=== PATIENT | male | born 1955 | race Caucasian/White ===

== ENCOUNTER 2022-03-28 21:37 | Emergency (ER) | payer MEDICARE, MEDICAID, SELFPAY ==
[2022-03-28 21:38] VITALS: BP 149/92; PULSE 83; RESP 18; TEMP 36.8; O2SAT 95; BMI 34.7
--- NOTE | 2022-03-28 22:10 | EX.ED.DYSGE1 ---
HPI History of Present Illness Chief Complaint: Rash Informant: patient and EMS Onset/Context/Timing Onset: Today (all day today, awoke w/ sx and presents around 2200) Context: Gradual Onset Timing: Continuous Quality: sore Location: R axilla Current Severity: Moderate Maximum Severity: Moderate Worsened by: palpation Relieved by: leaving alone Associated Symptoms Associated Symptoms: none Narrative Narrative: 66-year-old male with spontaneous onset of painful redness in his right axilla. No fevers or chills, no injury to this area, never had this before, he states that his right axilla skin is always looked abnormal but he does not know why. He has never had any abscesses or surgeries in this area. He states now the skin is similarly abnormal but just red and painful. [facility] Medical History Paranoid schizophrenia Home Medications buspirone 5 mg tablet 15 mg PO TID 11/08/13 [History Last Taken Unknown] hydroxyzine pamoate 25 mg capsule 50 mg PO BID PRN PRN Anxiety 11/08/13 [History Last Taken Unknown] lurasidone 80 mg tablet (Latuda) 80 mg PO DAILY 11/08/13 [History Last Taken Unknown] sertraline 100 mg tablet 300 mg PO DAILY 11/08/13 [History Last Taken Unknown] clotrimazole 1 % topical cream 1 applic topical BID 2 weeks #30 grams 03/28/22 [Rx Last Taken Unknown] doxycycline monohydrate 100 mg capsule 100 mg PO BID #14 CAPSULES 03/28/22 [Rx Last Taken Unknown] Allergy/AdvReac Type Severity Reaction Status Date / Time fluphenazine enanthate Allergy Other Verified 03/28/22 21:40 [From Prolixin] fluphenazine HCl Allergy Other Verified 03/28/22 21:40 [From Prolixin] haloperidol [From Haldol] Allergy Other Verified 03/28/22 21:40 haloperidol lactate Allergy Other Verified 03/28/22 21:40 [From Haldol] Social History Smoking Status: Current every day smoker tobacco type: cigarettes ROS ROS ED Constitutional Constitutional ED: Denies chills or fever(s) Eyes Eyes: Denies change in vision or diplopia Cardiovascular Cardiovascular: Denies chest pain or palpitations Respiratory/Chest Respiratory/Chest: Denies cough or dyspnea Gastrointestinal Gastrointestinal: Denies nausea or vomiting Genitourinary Genitourinary ED: Denies dysuria or hematuria Musculoskeletal Musculoskeletal: Denies back pain, myalgias or neck pain Integumentary Reports rash; Denies abscess Neurologic Neurologic: Denies headache(s), paresthesias or weakness EXAM Physical Exam Const Vital Signs: 03/28/22 21:38 Temperature 98.3 F Temperature Source Oral Pulse Rate 83 Respiratory Rate 18 Blood Pressure 149/92 H Blood Pressure Mean 111 Pulse Ox 95 Oxygen Delivery Method Room Air Positive well nourished, well developed and obese General Appearance ED: well developed and NAD Nutritional Appearance: obese HEENT Reports moist mucous membranes and dry mucous membranes Negative for trauma or tenderness Mouth ED: Yes dry mucous membranes Mouth: dry mucous membranes Eyes PERRL and EOMs intact bilaterally Neck no lymphadenopathy and supple Lymph Lymphatic Narrative: No axillary lymphadenopathy Chest Wall Chest Narrative: Right axilla: Moist skin diffusely surrounded by erythema that is relatively well margin/circumscribed, no abscess, no induration, erythema is most prominent around the circumference/edge of the entire area, the entire axilla is involved and the erythema is at the edge of the axilla. No discharge expressible. No objective tenderness but the patient states it hurts to palpate. No extension down the arm or elsewhere into the chest wall or back. Full range of motion of the shoulder without difficulty. Resp normal respiratory effort Effort and Inspection: able to speak in complete sentences Neuro oriented x3, CN's II-XII intact bilaterally and no sensory deficits noted Psych mental status grossly normal Skin no wounds Skin Narrative: Right axilla rash see above MDM MDM MDM Narrative Medical decision making narrative: I think this is most likely intertriginous candidiasis. Patient states it is very painful however, and this is the first time he has presented for this. I am putting him on doxycycline in case this is bacterial, but it looks more likely to be fungal. Will prescribe clotrimazole topical, and advised follow-up with primary care. We discussed reasons to return his comfortable with that plan. Discharge Plan Triage Chief Complaint: Rash ED Provider: Estuardo Traore Dx/Rx/DC Orders Clinical Impression: Intertriginous candidiasis Instructions: ED Shama Skin Infection (Adult) Prescriptions: New clotrimazole 1 % cream 1 applic topical BID 14 Days Qty: 30 0RF Rx Instructions: ok to substitute for different size tube if availability dictates doxycycline monohydrate 100 mg capsule 100 mg PO BID Qty: 14 0RF No Action buspirone 5 MG tablet 15 mg PO TID sertraline 100 MG tablet 300 mg PO DAILY hydroxyzine pamoate 25 MG capsule 50 mg PO BID PRN PRN (Reason: Anxiety) lurasidone [Latuda] 80 MG tablet 80 mg PO DAILY Primary Care Provider: [facility] Doctor,Out of Referrals: [facility] Doctor,Out of [Primary Care Provider] - 3-5 Days Disposition Disposition: Home, Self Care
[2022-03-28 22:17] VITALS: PULSE 76; RESP 17
[2022-03-28] MEDS: Doxycycline 100 MG CAPSULE PO (22:26)
== END 2022-03-28 22:40 | disposition home or self-care (01) ==
PROVIDERS: Emergency Provider Emergency Medicine; Visit Provider Emergency Medicine
DX: B37.2 Candidiasis of skin and nail (principal); E66.9 Obesity, unspecified; Z68.34 Body mass index [BMI] 34.0-34.9, adult; F17.210 Nicotine dependence, cigarettes, uncomplicated
CPT/HCPCS: 90471; 99284

== ENCOUNTER 2023-07-24 13:17 | Emergency (ER) | payer MEDICARE, MEDICAID, SELFPAY ==
[2023-07-24 13:18] VITALS: BP 164/89; PULSE 89; RESP 18; TEMP 36.5; O2SAT 97; BMI 32.1
[2023-07-24 13:23] VITALS: PULSE 101; RESP 18; O2SAT 97
[2023-07-24] MEDS: LORazepam 0.5 MG Tablet PO (13:56)
[2023-07-24 14:21] VITALS: BP 157/84; PULSE 78; RESP 18; O2SAT 98
--- NOTE | 2023-07-24 14:35 | EX.ED.VIS.PS ---
HPI HPI - Psych History of Present Illness Chief Complaint: Mental Health Detail of Chief Complaint: Anxiety Informant: patient Onset/Context/Timing Onset: Days Context: Gradual Onset Conflict: - (Issue with roommate) Timing: Continuous and Waxes and wanes Current Severity: Gone Maximum Severity: Severe Worsened by: Situational factors Relieved by: Not been around his roommate Associated Symptoms Associated Symptoms - Psych: Positive for - (States he is anxious because of his monthly injection and his roommate); Negative for Depressed, Change in Eating, Change in sleeping, Decreased Interest, Guilt, Decreased Concentration, Hopelessness, Suicidal Thoughts, Easily distracted, Grandiosity, Flight of Ideas, Increased activity, Pressured Speech, Agitated, Angry, Hostile, Threatening, Confusion, Paranoia, Visual Hallucinations or Auditory Hallucinations Specific plan (suicidal thought): Not applicable Narrative Narrative: Patient is a 67-year-old male who is lived in a long-term for 8 to 10 years. He has history of schizophrenia. He states he does have a roommate. He states he is anxious because his roommate is crazy . Asked if he had spoken to anyone at the long-term and he responded yes . Asked what her response was regarding his assessment of his roommate and he responded they agree . Patient denies suicidal homicidal thoughts. Patient presently denies visual or auditory hallucination. Patient denies fever, chills night sweats. Patient denies headache, visual, ocular auditory symptoms. Patient denies cardiac or respiratory symptoms. Patient denies GI symptoms. Patient denies symptoms. Patient denies neurologic symptoms. He states he received his Invega injection 3 weeks ago. He is slightly anxious that he is getting 1/3 injection in a week. Recent Illness/Hospitalization: No [facility] Medical History Paranoid schizophrenia Home Medications buspirone 5 mg tablet 15 mg PO TID 11/08/13 [History Last Taken Unknown] hydroxyzine pamoate 25 mg capsule 50 mg PO BID PRN PRN Anxiety 11/08/13 [History Last Taken Unknown] lurasidone 80 mg tablet (Latuda) 80 mg PO DAILY 11/08/13 [History Last Taken Unknown] sertraline 100 mg tablet 300 mg PO DAILY 11/08/13 [History Last Taken Unknown] clotrimazole 1 % topical cream 1 applic topical BID 2 weeks #30 grams 03/28/22 [Rx Last Taken Unknown] doxycycline monohydrate 100 mg capsule 100 mg PO BID #14 CAPSULES 03/28/22 [Rx Last Taken Unknown] Allergy/AdvReac Type Severity Reaction Status Date / Time fluphenazine enanthate Allergy Other Verified 07/24/23 13:22 [From Prolixin] fluphenazine HCl Allergy Other Verified 07/24/23 13:22 [From Prolixin] haloperidol [From Haldol] Allergy Other Verified 07/24/23 13:22 haloperidol lactate Allergy Other Verified 07/24/23 13:22 [From Haldol] Social History (Updated 07/24/23 @ 14:[address] Matthew Matthews MD) household members: other details: Shelter, there are 9 residents. He has a roommate. Smoking Status: Current every day smoker tobacco type: cigarettes substance use type: does not use ROS ROS ED Constitutional Constitutional ED: Denies chills, fever(s) or subjective Eyes Eyes: Denies blurry vision, change in vision or diplopia ENT ENT ED: Denies ear pain, rhinorrhea or sore throat Cardiovascular Cardiovascular: Denies chest pain or palpitations Respiratory/Chest Respiratory/Chest: Denies cough, dyspnea or dyspnea on exertion Gastrointestinal Gastrointestinal: Denies abdominal pain, nausea or vomiting Genitourinary Genitourinary ED: Denies dysuria, hematuria or urinary frequency Musculoskeletal Musculoskeletal: Denies arthralgias or myalgias Integumentary Denies rash Neurologic Neurologic: Denies headache(s), paresthesias or weakness Psychiatric Psychiatric: Reports anxiety; Denies suicidal ideation or suicidal thoughts EXAM Physical Exam Const Vital Signs: 07/24/23 13:18 07/24/23 13:23 07/24/23 14:21 Temperature 97.7 F L Temperature Source Temporal Pulse Rate 89 101 H 78 Respiratory Rate 18 18 18 Blood Pressure 164/89 H 157/84 H Blood Pressure Mean 114 108 Pulse Ox 97 97 98 Oxygen Delivery Method Room Air Room Air Room Air Positive well nourished, well developed and obese Constitutional Narrative: Peers in no distress. He seems fidgety. He is wearing sweatpants and a purple sweater. His hair is combed. He does have an odor to however. General Appearance ED: well developed; Negative for pallor Nutritional Appearance: obese HEENT Reports TM's clear and moist mucous membranes HEENT Narrative: Ears are normal. External auditory canal is normal. Nares patent. Posterior pharynx out erythema or exudate. Uvula is midline. normocephalic and atraumatic Tympanic Membrane ED: Yes TM's clear Eyes PERRL and EOMs intact bilaterally General Eye ED: Negative for pale conjunctiva or scleral icterus Neck no lymphadenopathy and no JVD Neck Narrative: He is midline. 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 Resp normal respiratory effort and clear to auscultation bilaterally Cardio S1 normal heart sound, S2 normal heart sound and no murmurs Rate: regular rate Rhythm: regular rhythm GI non-tender, non-distended and no masses Auscultation: hypoactive bowel sounds Palpation: soft Back/Spine no CVA tenderness Extremity normal to inspection General Extremety ED: Negative for edema, tenderness or other findings General Extremity: Negative for edema or other findings Neuro oriented x3, CN's II-XII intact bilaterally, no sensory deficits noted and deep tendon reflexes 2+ bilaterally [place] Coma Scale: document GCS findings Spontaneous Obeys Commands Oriented 15 Sensorium / Orientation: alert Psych cooperative, affect normal, speech normal, activity/motor behavior normal, denies hallucinations, denies homicidal ideation and denies suicidal ideation Appearance: grossly normal Attitude: calm and engaged Activity / Motor Behavior: appropriate eye contact and fidgetting Speech: normal speech Mood & Affect: flat affect Thought Process: normal thought process Thought Content: normal thought content Attention / Concentration: attention grossly intact Memory / Cognition: memory grossly intact Insight: fair Judgement: fair Skin General Skin Exam: Negative for jaundice or pallor Lesions: no lesions Rashes: no rashes MDM MDM MDM Narrative Medical decision making narrative: Complains of anxiety. We will administer Ativan and reassess. Patient's vitals reveal slightly elevated blood pressure. He is afebrile and he is not tachycardic tachypneic or hypoxic. There is no concern for a metabolic or infectious disease process. History & Record Review Additional record(s) reviewed:: Prior ED visit (Daily infection and obesity.) Treatment and Re-Evaluation Narrative: Patient proved after Ativan. Patient with anxiety reaction due to living conditions/roommate. Discharge Plan Triage Chief Complaint: Mental Health ED Provider: Matthew Matthews Dx/Rx/DC Orders Clinical Impression: Hx of paranoid schizophrenia, Anxiety reaction Prescriptions: No Action buspirone 5 MG tablet 15 mg PO TID sertraline 100 MG tablet 300 mg PO DAILY hydroxyzine pamoate 25 MG capsule 50 mg PO BID PRN PRN (Reason: Anxiety) lurasidone [Latuda] 80 MG tablet 80 mg PO DAILY clotrimazole 1 % cream 1 applic topical BID 14 Days Qty: 30 0RF Rx Instructions: ok to substitute for different size tube if availability dictates doxycycline monohydrate 100 mg capsule 100 mg PO BID Qty: 14 0RF [facility] [[facility] Provider[facility] - Disposition Disposition: Home, Self Care
--- NOTE | 2023-07-24 15:47 | ED.RN ---
PT STATES CAN I GO TO A PSYCH [facility]?. THIS RN SPOKE TO DR. WHITE. PER DR. WHITE, PT DOES NOT MEET CRITERIA FOR INPATIENT PSYCHIATRIC TREATMENT. THIS RN EDUCATED PT ON THIS. SOCIAL WORK TO COME TALK TO PT.
[2023-07-24 15:52] VITALS: BP 149/94; PULSE 89; RESP 18; O2SAT 97
[2023-07-24 15:53] VITALS: BP 149/94; PULSE 89; RESP 18; O2SAT 97
[2023-07-24 16:06] VITALS: RESP 17
--- NOTE | 2023-07-24 16:31 | ED.RN ---
DAVID, SOCIAL WORK TO CONTACT GUARDIAN.
--- NOTE | 2023-07-24 16:32 | CM.ED ---
Social Work SW notified that patient was inquiring about psych placement. SW introduced self and role to patient. Pt reports he does not like the longterm he resides in. SW provided support and listened to patient's concerns which were the food, people there, and grinder gear. Pt is not distressed or in need of psychiatric placement. SW explained he does not meet criteria. Pt reports he receives services through the [facility] and is looking for a new residence. Pt indicated he has a guardian which was not known by ED staff. Pt reports his guardian is Mariel Russo ([phone]) and she is assisting finding alternate housing with the [facility]. SW provided anxiety and counseling resources to patient. Pt arrived via squad and reports he does not have a way home. MARCELO informed patient guardian would be called and transportation will be explored. MARCELO contacted Mariel Russo regarding patient present in the ED. Mariel is agreeable to treatment and denies concerns. Mariel reports she [facility] on meeting [facility] for new placement and patient is interested in a nursing facility. Pt currently resides at [facility] and guardian is aware he is unhappy there. Mariel denies any transportation being available. MARCELO will attempt to find transportation for patient. [facility] called and VM left. SW received return call and [facility] denies having any transportation available due to time of day. MARCELO called [facility] with no answer as it was close to closing time. MARCELO contacted [facility] and after a long process, a ride was obtained for transportation back to [facility]. Ride facilitated by [facility] with [id number] conf. #[id number], . Approx. arrival to be 6:30 to 7:30. MARCELO notified patient of scheduled transportation. SW has patient waiting in ED waiting room and provided food to patient. Triage nurse is also aware of patient waiting for a scheduled ride. Guardian to be added to patient's contacts. Shea Dyer DECOMMISSIONING WELL SITE MANAGER, CONSTRUCTION ACCOUNTANT
== END 2023-07-24 16:39 | disposition home or self-care (01) ==
PROVIDERS: Emergency Provider Emergency Medicine; Visit Provider Emergency Medicine
DX: F41.1 Generalized anxiety disorder (principal); F20.9 Schizophrenia, unspecified; F17.210 Nicotine dependence, cigarettes, uncomplicated; E66.9 Obesity, unspecified
CPT/HCPCS: 99284

== ENCOUNTER 2023-08-26 13:58 | Emergency (ER) | payer MEDICAID, MEDICARE, SELFPAY ==
[2023-08-26 14:00] VITALS: BP 179/84; PULSE 86; RESP 16; TEMP 36.6; O2SAT 99; BMI 31.9
--- NOTE | 2023-08-26 16:51 | EX.ED.DYSGE1 ---
HPI History of Present Illness Chief Complaint: Neuro S/Sx Informant: patient Narrative Narrative: Patient is a 67-year-old male. Paranoid schizophrenia, receives his care through the [facility] for long-term use of Invega injections presenting with worsening tremor. He states is a side effect of the Invega. Is been going on for quite some time he states has been on this medicine for years. He feels it is getting worse. He has been on Cogentin in the past but willing to try it again. He is requesting a medication to help with the side effects as a becoming more bothersome for him. He states he is otherwise feeling well with no complaints. Denies any recent medication changes. He states [facility] and [facility] try to increase his side effect medication but its not helping. He states its not Cogentin or Benadryl but does not know the name of the medication. No other complaints or concerns at this time. [facility] Medical History Paranoid schizophrenia Home Medications buspirone 5 mg tablet 15 mg PO TID 11/08/13 [History Last Taken Unknown] hydroxyzine pamoate 25 mg capsule 50 mg PO BID PRN PRN Anxiety 11/08/13 [History Last Taken Unknown] lurasidone 80 mg tablet (Latuda) 80 mg PO DAILY 11/08/13 [History Last Taken Unknown] sertraline 100 mg tablet 300 mg PO DAILY 11/08/13 [History Last Taken Unknown] clotrimazole 1 % topical cream 1 applic topical BID 2 weeks #30 grams 03/28/22 [Rx Last Taken Unknown] doxycycline monohydrate 100 mg capsule 100 mg PO BID #14 CAPSULES 03/28/22 [Rx Last Taken Unknown] benztropine 1 mg tablet 1 mg PO TID PRN tremor(s) #20 tabs 08/26/23 [Rx Last Taken Unknown] Allergy/AdvReac Type Severity Reaction Status Date / Time fluphenazine enanthate Allergy Other Verified 08/26/23 14:02 [From Prolixin] fluphenazine HCl Allergy Other Verified 08/26/23 14:02 [From Prolixin] haloperidol [From Haldol] Allergy Other Verified 08/26/23 14:02 haloperidol lactate Allergy Other Verified 08/26/23 14:02 [From Haldol] Social History household members: other details: [facility]Way, there are 9 residents. He has a roommate. Smoking Status: Current every day smoker tobacco type: cigarettes substance use type: does not use ROS ROS ED Constitutional Constitutional ED: Denies chills or fever(s) Eyes Eyes: Denies change in vision Gastrointestinal Gastrointestinal: Denies abdominal pain, nausea or vomiting Neurologic Neurologic: Reports headache(s) and other Details: Tremor ; Denies paresthesias or weakness Psychiatric Psychiatric: Denies anxiety or depression EXAM Physical Exam Const Vital Signs: 08/26/23 14:00 Temperature 98 F Temperature Source Temporal Pulse Rate 86 Respiratory Rate 16 Blood Pressure 179/84 H Blood Pressure Mean 115 Pulse Ox 99 Oxygen Delivery Method Room Air Positive well nourished and well developed General Appearance ED: well developed and NAD HEENT Reports moist mucous membranes Eyes PERRL and EOMs intact bilaterally Neck supple Chest Wall inspection of chest normal Resp normal respiratory effort and clear to auscultation bilaterally Cardio regular rate, regular rhythm and no murmurs Extremity normal to inspection Neuro oriented x3 Neuro Narrative: Patient has pill-rolling tremor of the hands as well as repetitive movements of the mouth and with intention a slight tremor to the hands which are all highly consistent with an extrapyramidal reaction to his psychiatric medicine. Sensorium / Orientation: alert Psych mental status grossly normal Mood & Affect: Negative for depressed or anxious Skin no rashes or lesions noted MDM MDM MDM Narrative Medical decision making narrative: Is evaluated for concern of worsening tremor which he feels is an reaction to his Invega.On physical exam he does appear to be having extrapyramidal reaction. We will trial the patient on a short course of Cogentin however patient counseled that he really needs to follow-up with his psychiatrist for this. He verbalizes understand this. At this time I do not think he requires a psychiatric evaluation is acting quite appropriate. I also do not think he requires any head imaging or lab work. Given return precautions ER. Discharged home in stable condition. Discharge Plan Triage Chief Complaint: Neuro S/Sx ED Provider: Mya Marsh Dx/Rx/DC Orders Clinical Impression: Tremor, Extrapyramidal reaction Instructions: Essential Tremor (ET), Understanding Tardive Dyskinesia Prescriptions: New benztropine 1 mg tablet 1 mg PO TID PRN (Reason: tremor(s)) Qty: 20 0RF No Action buspirone 5 MG tablet 15 mg PO TID sertraline 100 MG tablet 300 mg PO DAILY hydroxyzine pamoate 25 MG capsule 50 mg PO BID PRN PRN (Reason: Anxiety) lurasidone [Latuda] 80 MG tablet 80 mg PO DAILY clotrimazole 1 % cream 1 applic topical BID 14 Days Qty: 30 0RF Rx Instructions: ok to substitute for different size tube if availability dictates doxycycline monohydrate 100 mg capsule 100 mg PO BID Qty: 14 0RF [facility] Provider] - Activity Restrictions/Additional Instructions: You have been prescribed a short course of Cogentin to see if this helps with your symptoms. This really needs to be discussed further with your psychiatrist and medication adjustments made from there. Disposition Disposition: Home, Self Care Discharge Date/Time: 08/26/23 17:25
[2023-08-26] MEDS: Benztropine 2 MG Tablet 1 MG PO (17:19)
== END 2023-08-26 17:25 | disposition home or self-care (01) ==
PROVIDERS: Emergency Provider Emergency Medicine; Visit Provider Emergency Medicine
DX: R25.1 Tremor, unspecified (principal); F20.0 Paranoid schizophrenia; F17.210 Nicotine dependence, cigarettes, uncomplicated
CPT/HCPCS: 99284